=== PATIENT | female | born 1990 | race Caucasian/White ===

== ENCOUNTER 2019-12-25 15:00 | Emergency (ER) | payer OTHER, SELFPAY ==
[2019-12-25 15:01] VITALS: BP 135/61; PULSE 60; PULSE 63; RESP 17; TEMP 36.4; O2SAT 100; O2SAT 99; BMI 21.9
== END 2019-12-25 15:09 | disposition left against medical advice (07) ==
LOC: ED 17:22
PROVIDERS: Emergency Provider Emergency Medicine; PCP Internal Medicine
DX: Z53.21 Procedure and treatment not carried out due to patient leaving prior to being seen by health care provider (principal)

== ENCOUNTER 2020-09-21 11:13 | Outpatient (RCR) | payer OTHER, SELFPAY | END 2020-11-07 23:59 | LOC: IMMUN 11:13 | PROVIDERS: Referring Provider Family Medicine; Visit Provider Family Medicine | DX: Z23 Encounter for immunization (principal) | CPT/HCPCS: 0001A; 0002A; 91300 ==